=== PATIENT | female | born 1985 | race Caucasian/White ===

== ENCOUNTER 2023-07-15 06:01 | Inpatient (IN) | payer BC ==
[2023-07-14 13:13] LABS: Hematocrit 35.5 % (34.9-44.5); Hemoglobin 12.2 g/dL (12.0-15.5); Platelet Count 303 10x3/uL (150-450)
[2023-07-14 14:01] LABS: Syphilis Antibody Nonreactive (Nonreactive); Syphilis Antibody Index 0.03 S/CO (<1.00 Non-Reactive)
[2023-07-14 14:02] LABS: HBSAg Index 0.19 S/CO (0-0.99); Hep B Surf Ag Non-Reactive S/CO (NonReactive)
[~2023-07-15 06:01] MED LIST: Carboprost 250 MCG/ML AMP IM PRN; Diphenoxylate HCl/Atropine Tablet PO PRN; HYDROcodone/Acetaminophen 5/325 mg Tablet PO PRN; Ibuprofen 800 MG TAB PO PRN; Lidocaine 1% (PF) 30 ML VIAL SC PRN; Misoprostol 100 MCG TAB VAG SCH; Misoprostol 200 MCG TAB PR PRN; Ondansetron PF 4 MG/2 ML Vial IVP PRN; Oxytocin 30 units/NS 500 ML 500 ML IV SCH; Promethazine HCl 25 MG/ML VIAL IM PRN; fentaNYL 50 mcg/mL 1 mL Vial SLOW IVP PRN; hydrALAZINE 20 MG/ML VIAL SLOW IVP PRN
[2023-07-15 06:12] VITALS: BMI 33.7
[2023-07-15] MEDS ORDERED: Terbutaline Sulfate 1 MG/ML VIAL SC SCH (06:30)
[2023-07-15] MEDS ORDERED: fentaNYL/Ropivacaine Epidural 100 ML ONE (10:38)
[2023-07-15] MEDS ORDERED: diphenhydrAMINE 50 MG/ML VIAL IVP PRN ×2 (10:54→14:14)
[2023-07-15] MEDS ORDERED: Lactated Ringer's 500 ML IV PRN (10:54)
[2023-07-15] MEDS ORDERED: Acetaminophen 325 MG TAB PO PRN (10:54)
[2023-07-15] MEDS ORDERED: Promethazine HCl 25 MG/ML VIAL IM PRN ×2 (10:54→14:14)
[2023-07-15] MEDS ORDERED: ePHEDrine Sulfate 50 MG/10 ML VIAL SLOW IVP PRN (10:54)
[2023-07-15] MEDS ORDERED: Moisturizing Cream (Eucerin) 113 GM JAR TOP PRN ×2 (10:54→14:14)
[2023-07-15] MEDS ORDERED: Naloxone HCl 0.4 mg/ml Vial IVP PRN ×4 (10:54→14:14)
[2023-07-15] MEDS ORDERED: Ondansetron PF 4 MG/2 ML Vial IVP PRN ×3 (10:54→14:14)
[2023-07-15] MEDS ORDERED: fentaNYL 2 mcg/Ropivacaine 0.2% Epidural 100 ML CADD EPIDURAL SCH (11:00)
[2023-07-15] MEDS ORDERED: Communication Order-Pharmacy FS SCH ×2 (11:00→14:15)
[2023-07-15] MEDS: Lactated Ringer's 1,000 ML IV SCH (11:26)
[2023-07-15] MEDS ORDERED: fentaNYL 50 mcg/mL 1 mL Vial ONE ×2 (12:10→12:53)
[2023-07-15] MEDS ORDERED: Ondansetron PF 4 MG/2 ML Vial ONE ×2 (12:30→12:52)
[2023-07-15] MEDS ORDERED: Dexamethasone 20 MG/5 ML VIAL ONE (12:30)
[2023-07-15] MEDS ORDERED: PHENYLEPHRINE-NS 100 MCG/ML 10 ML SYRINGE ONE ×2 (12:31→12:35)
[2023-07-15] MEDS ORDERED: Lidocaine 2% MPF 10 ML AMP (For Epidural Use) ONE ×3 (12:35→13:04)
[2023-07-15] MEDS ORDERED: CEFAZOLIN 2 GM VIAL ONE (12:38)
[2023-07-15] MEDS ORDERED: Dexmedetomidine 200 MCG/2 ML VIAL ONE ×2 (12:41→12:52)
[2023-07-15] MEDS ORDERED: Dexamethasone 4 mg/ml Vial ONE (12:52)
[2023-07-15] MEDS ORDERED: Oxytocin 10 UNITS/ML VIAL ONE (13:03)
[2023-07-15] MEDS ORDERED: Morphine PF 10 MG/10 ML VIAL ONE (13:07)
[2023-07-15 13:11] LABS: Analyzer IN Cardio CS ICU; RapidComm Collect By CBN; pH (Cord, venous) 7.327 (7.250-7.350)
[2023-07-15 13:12] LABS: Analyzer IN Cardio CS ICU; RapidComm Collect By CBN
[2023-07-15] MEDS ORDERED: Meperidine HCl/PF 25 MG (1 mL) VIAL SLOW IVP PRN (14:14)
[2023-07-15] MEDS ORDERED: Naloxone HCl 0.4 mg/ml Vial IV PRN (14:14)
[2023-07-15] MEDS ORDERED: fentaNYL 50 mcg/mL 1 mL Vial SLOW IVP PRN (14:14)
[2023-07-15] MEDS ORDERED: Promethazine HCl 25 MG SUPP PR PRN (14:14)
[2023-07-15] MEDS ORDERED: Ketorolac Tromethamine 30 MG (1 mL) VIAL IVP SCH (14:15)
[2023-07-15] MEDS ORDERED: hydrALAZINE 20 MG/ML VIAL SLOW IVP PRN (17:41)
[2023-07-15] MEDS ORDERED: Bisacodyl 10 MG SUPP PR PRN (17:41)
[2023-07-15] MEDS ORDERED: Lanolin Ointment 7 GM TUBE TOP PRN (17:41)
[2023-07-15] MEDS ORDERED: Boostrix 0.5 ML (Tdap) VIAL (>/=7 yrs of age) IM ONE (17:41)
[2023-07-15] MEDS: Docusate 100 MG CAP PO SCH (21:11)
[2023-07-15] MEDS: Ferrous Sulfate 325 MG TAB PO SCH (23:35)
[2023-07-16] MEDS: Lactated Ringer's 1,000 ML IV SCH ×2 (00:57→07:07)
[2023-07-16] MEDS: Ketorolac Tromethamine 30 MG (1 mL) VIAL IVP PRN ×2 (01:10→07:58)
[2023-07-16 03:52] LABS: Hemoglobin 9.3 g/dL (12.0-15.5); Mean Corpuscular HGB CONC 33.2 g/dL (32.0-36.0); Mean Corpuscular Hemoglobin 31.1 pg (27.0-33.0); Mean Corpuscular Volume 93.6 fl (81.6-98.3); Mean Platelet Volume 9.9 fl (7.4-10.4); Platelet Count 221 10x3/uL (150-450); RBC Distribution Width 14.7 % (11.5-14.5); Red Blood Cell (RBC) Count 2.99 10x6/uL (3.90-5.03); White Blood Cell (WBC) Count 12.3 10x3/uL (3.5-10.5)
[2023-07-16] MEDS: Prenatal Vitamin 1 TAB PO SCH (07:57)
[2023-07-16] MEDS: Ferrous Sulfate 325 MG TAB PO SCH ×2 (07:57→20:03)
[2023-07-16] MEDS: NIFEdipine XL 30 MG ER.TAB PO SCH (07:57)
[2023-07-16] MEDS: Docusate 100 MG CAP PO SCH ×2 (07:57→20:03)
[2023-07-16] MEDS: HYDROcodone/Acetaminophen 5/325 mg Tablet PO PRN ×2 (12:26→20:03)
[2023-07-16] MEDS: Ibuprofen 800 MG TAB PO SCH ×2 (14:04→21:35)
[2023-07-16] MEDS ORDERED: Ibuprofen 800 MG TAB PO PRN (20:00)
[2023-07-16] MEDS ORDERED: HYDROcodone/Acetaminophen 5/325 mg Tablet PO SCH (22:00)
[2023-07-17] MEDS: HYDROcodone/Acetaminophen 5/325 mg Tablet PO PRN ×2 (02:10→12:31)
[2023-07-17] MEDS: Ibuprofen 800 MG TAB PO SCH ×2 (06:22→15:09)
[2023-07-17] MEDS: Ferrous Sulfate 325 MG TAB PO SCH (08:42)
[2023-07-17] MEDS: NIFEdipine XL 30 MG ER.TAB PO SCH (08:42)
[2023-07-17] MEDS: Prenatal Vitamin 1 TAB PO SCH (08:42)
[2023-07-17] MEDS: Docusate 100 MG CAP PO SCH (08:42)
[2023-07-17 09:03] VITALS: TEMP 98
[2023-07-17 13:50] VITALS: BP 148/84
== END 2023-07-17 15:40 | disposition home or self-care (01) | DRG 786 ==
LOC: CSHLD 06:01 → EDSTATUS 07:30 → CSHPP 16:29
PROVIDERS: ADMIT Obstetrics & Gynecology; ATTEND Obstetrics & Gynecology
PROC: 10D00Z1 Extraction of Products of Conception, Low, Open Approach (ICD-10-PCS; principal; 2023-07-15)
PROC: 0UCC0ZZ Extirpation of Matter from Cervix, Open Approach (ICD-10-PCS; 2023-07-15)
PROC: 3E0234Z Introduction of Serum, Toxoid and Vaccine into Muscle, Percutaneous Approach (ICD-10-PCS; 2023-07-16)
DX: O24.420 Gestational diabetes mellitus in childbirth, diet controlled (principal); O34.33 Maternal care for cervical incompetence, third trimester; O10.92 Unspecified pre-existing hypertension complicating childbirth; O36.0930 Maternal care for other rhesus isoimmunization, third trimester, not applicable or unspecified; Z3A.37 37 weeks gestation of pregnancy; Z37.0 Single live birth; O32.1XX0 Maternal care for breech presentation, not applicable or unspecified; O76 Abnormality in fetal heart rate and rhythm complicating labor and delivery
CPT/HCPCS: 36415; 51702; 59412; 76815; 82805; 85014; 85018; 85027; 85049; 85461; 86780; 86850; 86900; 86901; 87340; 90384; 96372; J1100; J1885; J2274; J2405; J2590; J3010; J3105; J7120

== ENCOUNTER 2023-08-02 18:58 | Inpatient (IN) | payer BC ==
[~2023-08-02 18:58] MED LIST changes: -Carboprost 250 MCG/ML AMP IM PRN; -Diphenoxylate HCl/Atropine Tablet PO PRN; -HYDROcodone/Acetaminophen 5/325 mg Tablet PO PRN; -Ibuprofen 800 MG TAB PO PRN; +Iopamidol 300 61% 100 ML VIAL FS ONE; -Lidocaine 1% (PF) 30 ML VIAL SC PRN; -Misoprostol 100 MCG TAB VAG SCH; -Misoprostol 200 MCG TAB PR PRN; -Ondansetron PF 4 MG/2 ML Vial IVP PRN; -Oxytocin 30 units/NS 500 ML 500 ML IV SCH; -Promethazine HCl 25 MG/ML VIAL IM PRN; -fentaNYL 50 mcg/mL 1 mL Vial SLOW IVP PRN; -hydrALAZINE 20 MG/ML VIAL SLOW IVP PRN
[2023-08-02] MEDS ORDERED: Morphine 4 MG/ML VIAL ONE (20:07)
[2023-08-02] MEDS ORDERED: Ondansetron PF 4 MG/2 ML Vial ONE (20:08)
[2023-08-02 20:41] LABS: #Monocytes 0.8 10x3/uL (0.0-1.1); #Neutrophils 13.4 10x3/uL (1.5-8.4); %Basophils 0.2 % (0.0-2.0); %Eosinophils 0.3 % (0.0-6.0); %Lymphocytes 6.8 % (18.0-47.0); %Monocytes 5.5 % (0.0-10.0); %Neutrophils 86.8 % (40.0-75.0); Hematocrit 36.8 % (34.9-44.5); Hemoglobin 12.3 g/dL (12.0-15.5); Mean Corpuscular HGB CONC 33.4 g/dL (32.0-36.0); Mean Corpuscular Hemoglobin 30.7 pg (27.0-33.0); Mean Corpuscular Volume 91.8 fl (81.6-98.3); Mean Platelet Volume 9.6 fl (7.4-10.4); Platelet Count 456 10x3/uL (150-450); RBC Distribution Width 14.3 % (11.5-14.5); Red Blood Cell (RBC) Count 4.01 10x6/uL (3.90-5.03); White Blood Cell (WBC) Count 15.4 10x3/uL (3.5-10.5)
[2023-08-02 20:52] LABS: ALT (SGPT) 71 U/L (8-55); AST (SGOT) 83 U/L (5-34); Albumin 4.1 g/dL (3.5-5.0); Alkaline Phosphatase 158 U/L (40-110); Anion Gap 15 mmol/L (10-20); BUN (Urea Nitrogen) 14 mg/dL (7.0-18.7); Bilirubin, Total 0.4 mg/dL (0.2-1.2); Calc. Creatinine Clearance 0 mL/min (70-130); Carbon Dioxide 18 mmol/L (22-29); Chloride 112 mmol/L (98-107); Estimated GFR 105; Globulin 3.3 g/dL (2.4-3.5); Glucose 162 mg/dL (70-105); Potassium 3.7 mmol/L (3.5-5.1); Protein, Total 7.4 g/dL (6.0-8.3); Sodium 141 mmol/L (136-145)
[2023-08-02 21:27] LABS: Lipase 5077 U/L (8-78)
[2023-08-02 22:48] LABS: Bilirubin Neg (Negative); Blood, Urine 50 (Negative); Glucose, Urine (Dipstick) Normal (Negative); Ketone, Urine Negative (Negative); Leukocyte Negative (Negative); Nitrite Negative (Negative); Protein, Urine (Dipstick) 15 mg/dl (Neg-Trace); Urobilinogen Normal mg/dL (Less than 2)
[2023-08-02 22:50] LABS: Clarity Clear (Clear)
[2023-08-02 23:00] LABS: Bacteria/HPF None Seen HPF (None Seen); CAUTI Indications for Culture Pelvic or flank pain; RBC/HPF None Seen HPF (0-3); Squamous Epithelial 0-3 HPF (0-3); Urine Culture Reflex No No; WBC/HPF 0-3 HPF (0-3)
[2023-08-02] MEDS ORDERED: Guaifenesin DM 100-10/5 ML UDCUP PO PRN (23:04)
[2023-08-02] MEDS ORDERED: Ondansetron PF 4 MG/2 ML Vial IVP PRN (23:04)
[2023-08-02] MEDS ORDERED: Senokot S 8.6-50 MG TAB PO PRN (23:04)
[2023-08-02] MEDS ORDERED: hydrALAZINE 20 MG/ML VIAL SLOW IVP PRN (23:08)
[2023-08-03] MEDS: Morphine 2 MG/ML VIAL SLOW IVP PRN (01:26)
[2023-08-03] MEDS: HYDROcodone/Acetaminophen 5/325 mg Tablet PO PRN (01:32)
[2023-08-03] MEDS: Lactated Ringer's 1,000 ML IV SCH ×2 (01:34→06:07)
[2023-08-03] MEDS: Piperacillin/Tazobactam 3.375 GM in Sodium Chloride 0.9% 100 ML IVPB SCH ×3 (01:35→06:41)
[2023-08-03 03:23] LABS: #Eosinphils 0.1 10x3/uL (0.0-0.5); #Monocytes 0.4 10x3/uL (0.0-1.1); %Basophils 0.5 % (0.0-2.0); %Eosinophils 0.7 % (0.0-6.0); %Lymphocytes 15.4 % (18.0-47.0); %Monocytes 4.4 % (0.0-10.0); %Neutrophils 78.8 % (40.0-75.0); Hematocrit 31.7 % (34.9-44.5); Hemoglobin 10.5 g/dL (12.0-15.5); Mean Corpuscular HGB CONC 33.1 g/dL (32.0-36.0); Mean Corpuscular Hemoglobin 30.4 pg (27.0-33.0); Mean Corpuscular Volume 91.9 fl (81.6-98.3); Mean Platelet Volume 9.4 fl (7.4-10.4); Platelet Count 413 10x3/uL (150-450); RBC Distribution Width 14.5 % (11.5-14.5); Red Blood Cell (RBC) Count 3.45 10x6/uL (3.90-5.03); White Blood Cell (WBC) Count 8.8 10x3/uL (3.5-10.5)
[2023-08-03 03:39] LABS: Lactic Acid 1.3 mmol/L (0.5-2.2)
[2023-08-03 03:47] LABS: ALT (SGPT) 55 U/L (8-55); AST (SGOT) 43 U/L (5-34); Albumin 3.5 g/dL (3.5-5.0); Alkaline Phosphatase 138 U/L (40-110); Anion Gap 14 mmol/L (10-20); BUN (Urea Nitrogen) 11 mg/dL (7.0-18.7); Bilirubin, Total 0.2 mg/dL (0.2-1.2); Calc. Creatinine Clearance 0 mL/min (70-130); Calcium 8.2 mg/dL (7.8-10.44); Carbon Dioxide 18 mmol/L (22-29); Chloride 112 mmol/L (98-107); Cholesterol 219 mg/dl (< 200 Desired); Estimated GFR 114; Globulin 2.6 g/dL (2.4-3.5); Glucose 104 mg/dL (70-105); HDL Cholesterol 44 mg/dL (>60 Neg Risk); LDL Cholesterol, Calculated 114 mg/dL; Lipase 946 U/L (8-78); Magnesium 1.8 mg/dL (1.6-2.6); Potassium 3.6 mmol/L (3.5-5.1); Protein, Total 6.1 g/dL (6.0-8.3); Sodium 140 mmol/L (136-145); Triglycerides 307 mg/dL (Less than 150)
[2023-08-03 05:04] VITALS: BMI 34.7
[2023-08-03] MEDS: Enoxaparin 40 MG (0.4 mL) SYRINGE SC SCH (09:13)
[2023-08-03] MEDS: NIFEdipine XL 30 MG ER.TAB PO SCH (09:13)
[2023-08-03] MEDS: Famotidine/PF 20 mg/2ml Vial SLOW IVP SCH (09:13)
[2023-08-03 13:52] LABS: Bilirubin Neg (Negative); Blood, Urine 250 (Negative); Clarity Slightly Cloudy (Clear); Glucose, Urine (Dipstick) Normal (Negative); Ketone, Urine Negative (Negative); Leukocyte 500 (Negative); Nitrite Negative (Negative); Protein, Urine (Dipstick) 15 mg/dl (Neg-Trace); Urobilinogen Normal mg/dL (Less than 2)
[2023-08-03 14:09] LABS: Bacteria/HPF 4+ HPF (None Seen); WBC/HPF Greater than 50 HPF (0-3)
[2023-08-03] MEDS: Calcium Carbonate 500 MG ChewTAB PO PRN (20:26)
[2023-08-03] MEDS: Acetaminophen 325 MG TAB PO PRN (20:26)
[2023-08-03] MEDS: Zolpidem Tartrate 5 MG TAB PO PRN (20:26)
[2023-08-04 03:25] LABS: #Eosinphils 0.2 10x3/uL (0.0-0.5); #Monocytes 0.4 10x3/uL (0.0-1.1); #Neutrophils 4.2 10x3/uL (1.5-8.4); %Basophils 0.3 % (0.0-2.0); %Eosinophils 2.4 % (0.0-6.0); %Lymphocytes 23.2 % (18.0-47.0); %Monocytes 5.7 % (0.0-10.0); %Neutrophils 68.1 % (40.0-75.0); Hematocrit 30.8 % (34.9-44.5); Hemoglobin 10.3 g/dL (12.0-15.5); Mean Corpuscular HGB CONC 33.4 g/dL (32.0-36.0); Mean Corpuscular Volume 89.8 fl (81.6-98.3); Platelet Count 340 10x3/uL (150-450); RBC Distribution Width 14.1 % (11.5-14.5); Red Blood Cell (RBC) Count 3.43 10x6/uL (3.90-5.03); White Blood Cell (WBC) Count 6.1 10x3/uL (3.5-10.5)
[2023-08-04 04:06] LABS: ALT (SGPT) 39 U/L (8-55); AST (SGOT) 23 U/L (5-34); Albumin 3.4 g/dL (3.5-5.0); Alkaline Phosphatase 121 U/L (40-110); Anion Gap 12 mmol/L (10-20); BUN (Urea Nitrogen) 6 mg/dL (7.0-18.7); Bilirubin, Direct 0.1 mg/dL (0.1-0.3); Bilirubin, Total 0.4 mg/dL (0.2-1.2); Calc. Creatinine Clearance 157 mL/min (70-130); Calcium 8.5 mg/dL (7.8-10.44); Carbon Dioxide 23 mmol/L (22-29); Chloride 107 mmol/L (98-107); Estimated GFR 113; Glucose 90 mg/dL (70-105); Lipase 47 U/L (8-78); Potassium 3.1 mmol/L (3.5-5.1); Protein, Total 5.9 g/dL (6.0-8.3); Sodium 139 mmol/L (136-145)
[2023-08-04] MEDS: Potassium Chloride 20 MEQ in Premix 1 BAG IVPB SCH (10:50)
[2023-08-04] MEDS: NIFEdipine XL 30 MG ER.TAB PO SCH (10:50)
[2023-08-04] MEDS: Potassium Chloride 40 MEQ in Premix 1 BAG IVPB SCH (11:52)
[2023-08-04] MEDS ORDERED: Glucagon 1 MG/ML KIT ONE (11:54)
[2023-08-04] MEDS ORDERED: Iopamidol 30 ML ONE (11:54)
[2023-08-04] MEDS ORDERED: Indomethacin 50 MG SUPP ONE (11:55)
[2023-08-04] MEDS ORDERED: PROPOFOL 20 ML ONE (12:23)
[2023-08-04] MEDS ORDERED: Lidocaine 1% PF 5 ML VIAL ONE (12:23)
[2023-08-04] MEDS ORDERED: SUCCINYLCHOLINE/SOD CL,ISO/PF 200 MG/10 ML SYRINGE FS ONE (13:00)
[2023-08-04] MEDS ORDERED: Dexamethasone 4 mg/ml Vial ONE (13:00)
[2023-08-04] MEDS ORDERED: fentaNYL 50 mcg/mL 1 mL Vial ONE ×2 (13:00)
[2023-08-04] MEDS ORDERED: Ondansetron PF 4 MG/2 ML Vial ONE (13:00)
[2023-08-04] MEDS: Piperacillin/Tazobactam 3.375 GM in Sodium Chloride 0.9% 100 ML IVPB SCH (20:40)
[2023-08-05 03:29] LABS: #Monocytes 0.3 10x3/uL (0.0-1.1); #Neutrophils 7.9 10x3/uL (1.5-8.4); %Basophils 0.1 % (0.0-2.0); %Monocytes 2.9 % (0.0-10.0); %Neutrophils 85.6 % (40.0-75.0); Hematocrit 31.8 % (34.9-44.5); Mean Corpuscular HGB CONC 34.6 g/dL (32.0-36.0); Mean Corpuscular Hemoglobin 30.6 pg (27.0-33.0); Mean Corpuscular Volume 88.6 fl (81.6-98.3); Mean Platelet Volume 9.4 fl (7.4-10.4); Platelet Count 401 10x3/uL (150-450); RBC Distribution Width 13.4 % (11.5-14.5); Red Blood Cell (RBC) Count 3.59 10x6/uL (3.90-5.03); White Blood Cell (WBC) Count 9.2 10x3/uL (3.5-10.5)
[2023-08-05 03:45] LABS: ALT (SGPT) 33 U/L (8-55); AST (SGOT) 21 U/L (5-34); Albumin 3.5 g/dL (3.5-5.0); Alkaline Phosphatase 114 U/L (40-110); Anion Gap 16 mmol/L (10-20); BUN (Urea Nitrogen) 10 mg/dL (7.0-18.7); Bilirubin, Direct 0.1 mg/dL (0.1-0.3); Bilirubin, Total 0.3 mg/dL (0.2-1.2); Calc. Creatinine Clearance 148 mL/min (70-130); Calcium 8.6 mg/dL (7.8-10.44); Carbon Dioxide 21 mmol/L (22-29); Chloride 107 mmol/L (98-107); Estimated GFR 110; Glucose 104 mg/dL (70-105); Potassium 3.7 mmol/L (3.5-5.1); Protein, Total 6.4 g/dL (6.0-8.3); Sodium 140 mmol/L (136-145)
[2023-08-05] MEDS: NIFEdipine XL 60 MG ER.TAB PO SCH (09:06)
[2023-08-05] MEDS ORDERED: Bupivacaine PF 0.5% 30 ML VIAL ONE (11:11)
[2023-08-05] MEDS ORDERED: Ketorolac Tromethamine 30 MG (1 mL) VIAL ONE (11:23)
[2023-08-05] MEDS ORDERED: Ondansetron PF 4 MG/2 ML Vial ONE (11:23)
[2023-08-05] MEDS ORDERED: PROPOFOL 20 ML ONE (11:23)
[2023-08-05] MEDS ORDERED: Lidocaine 2% PF 5 ML VIAL ONE (11:23)
[2023-08-05] MEDS ORDERED: Dexamethasone 4 mg/ml Vial ONE (11:23)
[2023-08-05] MEDS ORDERED: Fentanyl 250 MCG/5 ML VIAL ONE (11:23)
[2023-08-05] MEDS ORDERED: Rocuronium Bromide 10 MG/ML (10ML VIAL) ONE (11:23)
[2023-08-05] MEDS ORDERED: Piperacillin/Tazobactam 3.375 GM VIAL ONE (11:56)
[2023-08-05] MEDS ORDERED: EPINEPHrine 1 MG/ML AMP ONE (11:56)
[2023-08-05] MEDS: FLU VACC QS2023-24(6MOS UP)/PF 60 MCG/0.5 ML SYRINGE IM ONE (12:19)
[2023-08-05] MEDS ORDERED: SUGAMMADEX SODIUM 200 MG/2 ML VIAL ONE (12:27)
[2023-08-05] MEDS ORDERED: Meperidine HCl/PF 25 MG (1 mL) VIAL ONE (12:46)
[2023-08-05 17:31] VITALS: BP 141/79; TEMP 98.2
== END 2023-08-05 18:52 | disposition home or self-care (01) | DRG 776 ==
LOC: CSHERS 18:58 → CSHPED 08-03 00:30 → CSHPP 08-03 00:55 → CSHTELE 08-04 14:08
PROVIDERS: ADMIT Student in an Organized Health Care Education/Training Program; ATTEND Internal Medicine
PROC: 3E033XZ Introduction of Vasopressor into Peripheral Vein, Percutaneous Approach (ICD-10-PCS; principal; 2023-08-05)
DX: O99.63 Diseases of the digestive system complicating the puerperium (principal); K85.10 Biliary acute pancreatitis without necrosis or infection; E86.0 Dehydration; Z79.899 Other long term (current) drug therapy; O10.93 Unspecified pre-existing hypertension complicating the puerperium; Z82.49 Family history of ischemic heart disease and other diseases of the circulatory system; O99.283 Endocrine, nutritional and metabolic diseases complicating pregnancy, third trimester; O24.439 Gestational diabetes mellitus in the puerperium, unspecified control; O99.215 Obesity complicating the puerperium; E66.9 Obesity, unspecified; K80.50 Calculus of bile duct without cholangitis or cholecystitis without obstruction
CPT/HCPCS: 36415; 74177; 74181; 76705; 80048; 80053; 80061; 80076; 81001; 83605; 83690; 83735; 85025; 86850; 86870; 86900; 86901; 88304; 96374; 96375; C1725; J0171; J0665; J1100; J1611; J1650; J1885; J2001; J2175; J2270; J2272; J2405; J2543; J2704; J3010; J3480; J3490; J7120; Q9967; S0028